=== PATIENT | female | born 1985 | race Caucasian/White ===

== ENCOUNTER 2017-05-08 20:31 | Emergency (ER) | payer BC, OTHER ==
[2017-05-08] MEDS ORDERED: Cyclobenzaprine 10 MG Tab PO ONE (21:25)
--- NOTE | 2017-05-08 21:37 | EDM.PDOC ---
ED HPI GENERAL MEDICAL PROBLEM - General Chief Complaint: ENT Problem Stated Complaint: EAR/NECK PAIN Time Seen by Provider: 05/08/17 21:06 Source of Information: Reports: Patient History Limitations: Reports: No Limitations - History of Present Illness INITIAL COMMENTS - FREE TEXT/NARRATIVE: HISTORY AND PHYSICAL: History of present illness: Patient is a 32-year-old female who presents to the emergency room with complaints of bilateral ear pain and neck/head pain. States she recently was treated with Augmentin for an ear infection. Since completing her antibiotic she still has bilateral ear pain and describes a pain to her upper neck that wraps around to her scalp like a head stand. She denies any fever, chills, change in vision. Denies any chest pain, shortness of breath, abdominal pain, nausea, vomiting or diarrhea. She has full range of motion of her neck, but does have some tension in her trapezius muscles. Review of systems: As per history of present illness and below otherwise all systems reviewed and negative. Past medical history: As per history of present illness and as reviewed below otherwise noncontributory. Surgical history: As per history of present illness and as reviewed below otherwise noncontributory. Social history: No reported history of drug or alcohol abuse. Family history: As per history of present illness and as reviewed below otherwise noncontributory. Physical exam: Gen.: Well-developed and well-nourished 32-year-old female. Alert and oriented. Nontoxic appearing and in no acute distress. HEENT: Atraumatic, normocephalic, pupils reactive, negative for conjunctival pallor or scleral icterus, mucous membranes moist, TMs normal bilaterally ( superficial scratch noted to right ear cannal - no bleeding noted), throat clear , neck supple, nontender, trachea midline. Able to tuck her chin on her chest without any difficulty or pain. No meningeal signs. No drooling or trismus. Lungs: Clear to auscultation, breath sounds equal bilaterally, chest nontender. Heart: S1S2, regular rate and rhythm without overt murmurs. Abdomen: Soft, nondistended, nontender. Negative for masses or hepatosplenomegaly. Negative for costovertebral tenderness. Pelvis: Stable nontender. Genitourinary: Deferred. Rectal: Deferred. Extremities: Atraumatic, negative for cords or calf pain. Neurovascular unremarkable. Neuro: Awake, alert, oriented. Cranial nerves II through XII unremarkable. Cerebellum unremarkable. Motor and sensory unremarkable throughout. Exam nonfocal. Patient no longer has an ear infection that is noted. The discomfort she is feeling in her neck as she describes it wrapping around the base of her skull like a tight band on second tension headache. We did discuss treatment options of this. She declines any IM injections. ORAL Flexeril. Discharged to home. She has created a follow-up appointment with ear nose throat, encouraged her to keep this appointment. Diagnostics: [] Therapeutics: Flexeril Impression: Otalgia Tension type headache Plan: 1. Please take the Flexeril tonight prior to bed. Ibuprofen with food, as directed. Gentle heat can be applied to those muscles to alleviate discomfort. 2. Follow up with ENT as you continue to have ear pain, without infection. 3. Return to the ED as needed and as discussed. Definitive disposition and diagnosis as appropriate pending reevaluation and review of above. Duration: Day(s): - Related Data Allergies Allergy/AdvReac Type Severity Reaction Status Date / Time aspirin Allergy Anaphylactic Verified 05/08/17 20:35 Shock morphine Allergy Dizziness Verified 05/08/17 20:35 Home Meds: Home Meds . 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: Musculoskeletal History: Reports: None Neurological History: Reports: None Psychiatric History: Reports: Anxiety Endocrine/Metabolic History: Reports: None Hematologic History: Reports: None Immunologic History: Reports: None Oncologic (Cancer) History: Reports: None Dermatologic History: Reports: None - Infectious Disease History Infectious Disease History: Reports: Chicken Pox - Past Surgical History Head Surgeries/Procedures: Reports: None GI Surgical History: Reports: Appendectomy Female Surgical History: Reports: Section Social & Family History - Family History Family Medical History: Noncontributory - Tobacco Use Smoking Status *Q: Light Tobacco Smoker Years of Tobacco use: 5 Packs/Tins Daily: 0.1 - Caffeine Use Caffeine Use: Reports: Coffee - Recreational Drug Use Recreational Drug Use: No ED ROS ENT - Review of Systems Review Of Systems: ROS reveals no pertinent complaints other than HPI. ED EXAM, ENT - Physical Exam Exam: See Below (See dictation) Course - Vital Signs Last Recorded V/S: Last Vital Signs Temp 98.1 F 05/08/17 20:35 Pulse 89 05/08/17 20:35 Resp 18 05/08/17 20:35 BP 132/65 05/08/17 20:35 Pulse Ox 98 05/08/17 20:35 - Orders/Labs/Meds Meds: Medications Discontinued Medications Generic Name Dose Route Start Last Admin Trade Name Freq PRN Reason Stop Dose Admin Cyclobenzaprine HCl 10 mg 05/08/17 21:25 Flexeril PO 05/08/17 21:26 ONETIME ONE Departure - Departure Time of Disposition: 21:37 Disposition: Home, Self-Care 01 Clinical Impression: Otalgia of both ears Tension type headache Qualifiers: Headache chronicity pattern: acute headache Intractability: not intractable Qualified Code(s): G44.209 - Tension-type headache, unspecified, not intractable - Discharge Information Referrals: PCP,None [Primary Care Provider] - Additional Instructions: The following information is given to patients seen in the emergency department who are being discharged to home. This information is to outline your options for follow-up care. We provide all patients seen in our emergency department with a follow-up referral. The need for follow-up, as well as the timing and circumstances, are variable depending upon the specifics of your emergency department visit. If you don't have a primary care physician on staff, we will provide you with a referral. We always advise you to contact your personal physician following an emergency department visit to inform them of the circumstance of the visit and for follow-up with them and/or the need for any referrals to a consulting specialist. The emergency department will also refer you to a specialist when appropriate. This referral assures that you have the opportunity for follow-up care with a specialist. All of these measure are taken in an effort to provide you with optimal care, which includes your follow-up. Under all circumstances we always encourage you to contact your private physician who remains a resource for coordinating your care. When calling for follow-up care, please make the office aware that this follow-up is from your recent emergency room visit. If for any reason you are refused follow-up, please contact the [facility] Emergency Department at and asked to speak to the emergency department charge nurse. SAB[facility] - ENT [address] [place] [id number] 1. Please take the Flexeril tonight prior to bed. Ibuprofen with food, as directed. Gentle heat can be applied to those muscles to alleviate discomfort. 2. Follow up with ENT as you continue to have ear pain, without infection. 3. Return to the ED as needed and as discussed.
== END 2017-05-08 21:46 | disposition home or self-care (01) ==
LOC: MW.ED 20:31
DX: G44.209 Tension-type headache, unspecified, not intractable (principal); H92.03 Otalgia, bilateral; F17.210 Nicotine dependence, cigarettes, uncomplicated; Z88.6 Allergy status to analgesic agent; Z88.5 Allergy status to narcotic agent
CPT/HCPCS: 99282; A9270; 99283

== ENCOUNTER 2018-09-01 05:40 | Inpatient (IN) | payer BC ==
[2018-09-01] MEDS ORDERED: ceFAZolin 2 GM in Premix Bag 1 BAG IV ONE (06:20)
[2018-09-01] MEDS ORDERED: Sodium Chloride 0.9% 2.5 ML Syringe FLUSH PRN (06:20)
[2018-09-01] MEDS ORDERED: Sodium Chloride 0.9% 10 ML SDV IV PRN (06:20)
[2018-09-01] MEDS ORDERED: Sodium Chloride 0.9% 10 ML Syringe FLUSH PRN (06:20)
[2018-09-01] MEDS ORDERED: Citric Acid/Sodium Citrate Solution 30 ML Cup PO ONE (06:20)
[2018-09-01] MEDS ORDERED: Lactated Ringers 1,000 ML IV SCH ×2 (06:30→09:15)
[2018-09-01] MEDS ORDERED: Oxytocin/0.9 % Sodium Chloride 30 UNIT/500 ML BAG IV SCH (06:30)
[2018-09-01] MEDS ORDERED: Phenylephrine/Normal Saline 100 MCG/ML 10 ML Syringe ONE (07:17)
[2018-09-01] MEDS ORDERED: Morphine PF 10 MG/10 ML SDV ONE (07:17)
[2018-09-01] MEDS ORDERED: ePHEDrine 50 MG/ML SDV ONE (07:17)
[2018-09-01] MEDS ORDERED: Ondansetron 4 MG/2 ML SDV ONE (07:17)
[2018-09-01] MEDS ORDERED: Sodium Chloride 0.9% 40 ML ONE (07:18)
[2018-09-01] MEDS ORDERED: ceFAZolin 1 GM Vial ONE (07:18)
[2018-09-01] MEDS ORDERED: Oxytocin/0.9 % Sodium Chloride 30 UNIT/500 ML BAG ONE (07:18)
--- NOTE | 2018-09-01 07:33 | PCM.PREANE ---
Preanesthetic Assessment - Anesthesia/Transfusion/Family Hx Anesthesia History: Prior Anesthesia Without Reaction Family History of Anesthesia Reaction: No Transfusion History: No Prior Transfusion(s) - Review of Systems General: No Symptoms Pulmonary: No Symptoms Cardiovascular: No Symptoms Gastrointestinal: No Symptoms Neurological: No Symptoms Other: Reports: None - Physical Assessment Height: 5 ft 1 in Weight: 68.039 kg ASA Class: 2 Mental Status: Alert & Oriented x3 Airway Class: Mallampati = 2 Dentition: Reports: Normal Dentition Thyro-Mental Finger Breadths: 3 Mouth Opening Finger Breadths: 3 ROM/Head Extension: Full Lungs: Clear to Auscultation, Normal Respiratory Effort Cardiovascular: Regular Rate, Regular Rhythm - Lab Values: Laboratory Last Values WBC 12.97 K/uL (4.0-11.0) H 09/01/18 06:46 RBC 4.02 M/uL (4.30-5.90) L 09/01/18 06:46 Hgb 11.7 g/dL (12.0-16.0) L 09/01/18 06:46 Hct 35.8 % (36.0-46.0) L 09/01/18 06:46 MCV 89.1 fL (80.0-98.0) 09/01/18 06:46 MCH 29.1 pg (27.0-32.0) 09/01/18 06:46 MCHC 32.7 g/dL (31.0-37.0) 09/01/18 06:46 RDW Std Deviation 45.3 fl (28.0-62.0) 09/01/18 06:46 RDW Coeff of Wong 14 % (11.0-15.0) 09/01/18 06:46 Plt Count 236 K/uL (150-400) 09/01/18 06:46 MPV 11.10 fL (7.40-12.00) 09/01/18 06:46 Nucleated RBC % 0.0 /100WBC 09/01/18 06:46 Nucleated RBCs # 0 K/uL 09/01/18 06:46 - Allergies Allergies/Adverse Reactions: Allergies Allergy/AdvReac Type Severity Reaction Status Date / Time aspirin Allergy Anaphylactic Verified 08/27/18 10:11 Shock morphine Allergy Rash Verified 08/27/18 10:10 - Acknowledgements Anesthesia Type Planned: Spinal Pt an Appropriate Candidate for the Planned Anesthesia: Yes Alternatives and Risks of Anesthesia Discussed w Pt/Guardian: Yes Pt/Guardian Understands and Agrees with Anesthesia Plan: Yes PreAnesthesia Questionnaire HEENT History: Reports: None Cardiovascular History: Reports: None Respiratory History: Reports: None Gastrointestinal History: Reports: GERD Other Gastrointestinal History: heartburn with Genitourinary History: Reports: None 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 (Approximate): Musculoskeletal History: Reports: Other (See Below) Other Musculoskeletal History: intermittent back pain with this , sciatica, scoliosis Neurological History: Reports: None Psychiatric History: Reports: Anxiety Endocrine/Metabolic History: Reports: None Hematologic History: Reports: None Immunologic History: Reports: None Oncologic (Cancer) History: Reports: None Dermatologic History: Reports: Other (See Below) Other Dermatologic History: eczema in the winter - Infectious Disease History Infectious Disease History: Reports: Chicken Pox - Past Surgical History Head Surgeries/Procedures: Reports: None HEENT Surgical History: Reports: LASIK Cardiovascular Surgical History: Reports: None Respiratory Surgical History: Reports: None GI Surgical History: Reports: Appendectomy Female Surgical History: Reports: Section (Epidural conversion) Neurological Surgical History: Reports: None Musculoskeletal Surgical History: Reports: None Dermatological Surgical History: Reports: None - SUBSTANCE USE Smoking Status *Q: Former Smoker Tobacco Use Within Last Twelve Months: Cigarettes Second Hand Smoke Exposure: No Recreational Drug Use History: No - HOME MEDS Home Medications: Home Meds Acetaminophen [Tylenol Extra Strength] 2 tab PO ASDIRECTED PRN 08/27/18 [History ] Melatonin 300 mcg PO BEDTIME 08/27/18 [History] PNV95/Ferrous Fumarate/FA [ Vitamin Tablet] 1 tab PO DAILY 08/27/18 [ History] raNITIdine HCl [Zantac] 150 mg PO DAILY 08/27/18 [History] - CURRENT (IN HOUSE) MEDS Current Meds: Current Medications Lactated Ringer's (Ringers, Lactated) 1,000 mls @ 500 mls/hr IV BOLUS PATRICE Oxytocin/Sodium Chloride (Oxytocin 30 Unit/500 Ml-Ns) 30 unit in 500 mls @ 250 mls/hr IV TITRATE PATRICE Sodium Chloride (Saline Flush) 10 ml FLUSH ASDIRECTED PRN PRN Reason: Keep Vein Open Sodium Chloride (Saline Flush) 2.5 ml FLUSH ASDIRECTED PRN PRN Reason: Keep Vein Open Sodium Chloride (Normal Saline) 10 ml IV ASDIRECTED PRN PRN Reason: IV Use Discontinued Medications Cefazolin Sodium (Ancef) Confirm Administered Dose 2 gm .ROUTE .STK-MED ONE Stop: 09/01/18 07:19 Citric Acid/Sodium Citrate (Bicitra Solution) 30 ml PO ONETIME ONE Stop: 09/01/18 06:21 Ephedrine Sulfate (Ephedrine Sulfate) Confirm Administered Dose 50 mg .ROUTE .STK-MED ONE Stop: 09/01/18 07:18 Cefazolin Sodium/Dextrose 2 gm (/ Premix) 50 mls @ 100 mls/hr IV ONETIME ONE Stop: 09/01/18 06:49 Sodium Chloride (Normal Saline) Confirm Administered Dose 40 mls @ as directed .ROUTE .STK-MED ONE Stop: 09/01/18 07:19 Oxytocin/Sodium Chloride (Oxytocin 30 Unit/500 Ml-Ns) Confirm Administered Dose 30 unit in 500 mls @ as directed .ROUTE .STK-MED ONE Stop: 09/01/18 07:19 Morphine Sulfate (Duramorph Pf) Confirm Administered Dose 10 mg .ROUTE .STK-MED ONE Stop: 09/01/18 07:18 Ondansetron HCl (Zofran) Confirm Administered Dose 4 mg .ROUTE .STK-MED ONE Stop: 09/01/18 07:18 Phenylephrine HCl (Phenylephrine In Ns 100 Mcg/Ml) Confirm Administered Dose 1 mg .ROUTE .STK-MED ONE Stop: 09/01/18 07:18
[2018-09-01] MEDS ORDERED: fentaNYL 100 MCG/2 ML SDV ONE (07:51)
[2018-09-01] MEDS ORDERED: Midazolam 1 MG/ML 2 ML SDV ONE (08:17)
[2018-09-01] MEDS ORDERED: Acetaminophen/oxyCODONE 325-5 MG Tab PO PRN (09:12)
[2018-09-01] MEDS ORDERED: diphenhydrAMINE 50 MG/ML SDV IVPUSH PRN (09:12)
[2018-09-01] MEDS ORDERED: Lanolin 100% Cream 7 GM Tube TOP PRN (09:12)
[2018-09-01] MEDS ORDERED: Aluminum Hydroxide/Magnesium Hydroxide/Simethicone Susp 30 ML Cup PO PRN (09:12)
[2018-09-01] MEDS ORDERED: Bisacodyl 10 MG Supp RECTAL PRN (09:12)
[2018-09-01] MEDS ORDERED: Ondansetron 4 MG/2 ML SDV IVPUSH PRN (09:12)
[2018-09-01] MEDS ORDERED: fentaNYL/Normal Saline 300 MCG/30 ML PCA Vial IV SCH (09:30)
--- NOTE | 2018-09-01 09:33 | PCM.POSTAN ---
POST ANESTHESIA ASSESSMENT - MENTAL STATUS Mental Status: Alert, Oriented - VITAL SIGNS Pulse Rate: 67 SaO2: 100 (RA) Resp Rate: 11 Blood Pressure: 129/67 - RESPIRATORY Respiratory Status: Respiratory Rate WNL, Airway Patent, O2 Saturation Stable - CARDIOVASCULAR CV Status: Pulse Rate WNL, Blood Pressure Stable - GASTROINTESTINAL GI Status: No Symptoms - PAIN Pain Score: 0 - POST OP HYDRATION Hydration Status: Adequate & Stable
--- NOTE | 2018-09-01 09:46 | PCM.OPNOTE ---
- General Post-Op/Procedure Note Date of Surgery/Procedure: 09/01/18 Operative Procedure(s): Repeat LTCS Findings: viable male APGARs 8, 8 weight 3210 gm. Intact placenta with 3 V cord. Copious amounts of clear amniotic fluid Pre Op Diagnosis: 38/1 week IUP. Previous c section. Severe polyhydramnios Post-Op Diagnosis: same Anesthesia Technique: Spinal Primary Surgeon: Yuliya Taylor Pathology: placenta Fluid Replacement, Intraop: 1,700 EBL in mLs: 500 Complications: None known Condition: Good Free Text/Narrative:: Intake & Output 08/31/18 09/01/18 09/01/18 22:59 06:59 14:59 Output Total 400 Balance -400 Dictation [id number]
--- NOTE | 2018-09-01 10:34 | OR ---
SURGEON: Yuliya Taylor M.D. DATE OF PROCEDURE: 09/01/2018 PREOPERATIVE DIAGNOSES: 1. 38-1/7 weeks' intrauterine . 2. Previous section. 3. Severe polyhydramnios. POSTOPERATIVE DIAGNOSES: 1. 38-1/7 weeks' intrauterine . 2. Previous section. 3. Severe polyhydramnios. PROCEDURE: Repeat low-transverse section. PRIMARY SURGEON: Yuliya Taylor MD. RECRUITMENT INTERNSHIP: [employer] Lopez. ANESTHESIA: Spinal. ESTIMATED BLOOD LOSS: 500 mL. FLUIDS: 1700 mL of crystalloid. COMPLICATIONS: None known. FINDINGS: Viable male. scores of 8 at 1 minute and 8 at 5 minutes. Weight of 3210 g. Intact placenta, 3-vessel cord. Copious amount of clear fluid. DISPOSITION: The patient to PACU, infant to nursery. PROCEDURE DETAILS: Sherri is a 33-year-old, G3, P 1-1-0-1, at 38-1/7 weeks' gestation, who presented on the morning of 09/01/2018 for scheduled repeat delivery given history of previous delivery and now with severe polyhydramnios. On initial exam, she was found to be tex every 4 to 5 minutes and her cervix had made some change to 4 cm, but still thick and head is very high, not engaged in the pelvis with bulging bag of water. After discussion with the patient, she is still opting to proceed with the repeat delivery as she had had some consideration for trial labor after . Risks of the procedure once again discussed. Proper consent obtained. The patient was taken to the operating room where she underwent spinal anesthetic, was placed in the dorsal supine position with leftward tilt. SCDs to lower extremities. Taylor to gravity. Was prepped and draped in usual sterile fashion. A time-out was performed. After being prepped and draped in usual sterile fashion, anesthesia was tested, found to be adequate. Previous Pfannenstiel scar was now excised. Subcutaneous tissue was incised down to level of the rectus fascia, which was incised in midline, lateralized on either side sharply and bluntly. Superior aspect was tented upward, dissected sharply and bluntly from underlying muscles. Similar aspect was performed in the inferior aspect of the fascia. Rectus muscle in midline. Peritoneum was entered. Rectus muscle and peritoneum were now lateralized bluntly. A self - retaining tractor gently placed. Uterovesical adhesions noted. The bladder flap was created sharply and bluntly and bladder was mobilized away from lower uterine segment. Low transverse hysterotomy was now performed. Uterine cavity was gently entered with the blunt end of the scalpel and lateralized bluntly in attempt to control the evacuation of the uterus. An 18-gauge needle was used to needle the amniotic membranes. However, even with this small rent in the amniotic bed, it simply ruptured grossly with copious fluid returned. The head was flexed and delivered with the remainder of the body without difficulty. The oropharynx and nares were bulb suctioned. Cord was clamped x2 and cut. was handed off to attending c architect. Cord arterial, cord venous, cord blood sampling obtained. Light pressure was applied while the placenta was now delivered. Uterine cavity was cleared of all clot and debris. Uterus was involuting nicely. The hysterotomy was repaired using 0 Vicryl in continuous running locked fashion followed by a re-imbricating layer. Area of oozing in the midline was plicated with [id number] suture. Uterus has remained firm. Posterior aspect of uterus inspected. No defects or hematomas found be forming. Region was well irrigated, suction dried. A re-imbricating layer of 0 Vicryl was utilized to replicate the hysterotomy incision. Self-retaining tractor now gently removed. Bladder blade and Rich were now placed. Any areas of oozing were cauterized. Hemostasis appeared evident. The bladder blade was now removed. The muscle and peritoneum were now reapproximated using 0 Vicryl with inverted mattress suture technique. Anterior aspect of muscle and posterior aspect of fascia closely inspected, any areas of oozing were cauterized. The rectus fascia was reapproximated using 0 Vicryl in continuous running fashion beginning laterally on each side and meeting in the midline. Subcutaneous tissue was well irrigated, suction dried. Any areas of oozing were cauterized. The skin edges were reapproximated using 3-0 Vicryl on a Lj needle in subcuticular fashion followed by half-inch Steri-Strips and Mastisol re-imbrication. Uterus remained firm, hemostasis appeared evident. The patient tolerated the procedure well. She will go to PACU in stable condition. Sponge, instrument, and needle counts correct x2. The placenta will go to pathology, infant to nursery. AHMET / ABRAHAM /[id number] MTDD
[2018-09-01] MEDS: fentaNYL 100 MCG/2 ML SDV IVPUSH PRN ×2 (11:57→12:48)
[2018-09-01] MEDS: Simethicone 80 MG Tab.Chew PO SCH ×3 (11:59→23:55)
[2018-09-01] MEDS ORDERED: fentaNYL 1,000 MCG in Sodium Chloride 0.9% 80 ML IV PRN (13:04)
[2018-09-01] MEDS ORDERED: Acetaminophen/oxyCODONE 325-5 MG Tab PO ONE (16:44)
--- NOTE | 2018-09-01 17:27 | PCM.SN ---
- Free Text/Narrative Note: Fentanyl PIPING BLOCKER was setup by me as it was mixed by our pharmacy and not compatible with our PIPING BLOCKER pumps. Pt settings 15mcg Q7mins with Q4HR LO 250mcg. Patient has continued to be increasingly uncomfortable throughout the afternoon. Percocet 5 /325 x1 PO ordered by me. Pizarro is being d/c'd at this time. I informed the patient if better relief is obtained from the percocet and pizarro removal the PIPING BLOCKER would be d/c'd and she would probably benefit better from PO management. Patient expresses understanding, Dr Taylor updated by Mayte MARQUEZ.
[2018-09-01] MEDS: Docusate Sodium 100 MG Cap PO SCH (20:52)
[2018-09-01] MEDS: Acetaminophen/oxyCODONE 325-5 MG Tab PO PRN (22:22)
[2018-09-02] MEDS: Acetaminophen/oxyCODONE 325-5 MG Tab PO PRN ×6 (02:24→22:53)
[2018-09-02] MEDS: Simethicone 80 MG Tab.Chew PO SCH ×4 (06:27→23:30)
--- NOTE | 2018-09-02 06:44 | PCM48HPAN ---
Post Anesthesia Note - EVALUATION WITHIN 48HRS OF ANESTHETIC Vital Signs in Normal Range: Yes Patient Participated in Evaluation: Yes Respiratory Function Stable: Yes Airway Patent: Yes Cardiovascular Function Stable: Yes Hydration Status Stable: Yes Pain Control Satisfactory: Yes Nausea and Vomiting Control Satisfactory: Yes Pulse Rate: 96 SaO2: 100 Resp Rate: 15 Blood Pressure: 118/74 - COMMENTS/OBSERVATIONS Free Text/Narrative:: Fentanyl SKATING RINK MANAGER D/C'd due to poor pain control. Percocet PO has been better. Pt was able to sleep throughout the night.
--- NOTE | 2018-09-02 08:47 | PCM.PNPP ---
- General Info Date of Service: 09/02/18 Functional Status: Reports: Pain Controlled, Tolerating Diet, Ambulating, Urinating - Review of Systems General: Denies: Fever, Weakness Pulmonary: Denies: Shortness of Breath Cardiovascular: Denies: Chest Pain, Palpitations, Lightheadedness Gastrointestinal: Reports: Abdominal Pain (incisional controlled with oral pain meds). Denies: Nausea, Vomiting Musculoskeletal: Reports: No Symptoms Skin: Reports: No Symptoms Neurological: Reports: No Symptoms Psychiatric: Reports: No Symptoms - General Info Date of Service: 09/02/18 - Patient Data Vital Signs - Most Recent: Last Vital Signs Temp 36.3 C 09/02/18 04:17 Pulse 96 09/02/18 06:44 Resp 15 09/02/18 06:44 BP 118/74 09/02/18 06:44 Pulse Ox 100 09/02/18 06:44 Weight - Most Recent: 68.039 kg I&O - Last 24 Hours: Intake & Output 09/01/18 09/02/18 09/02/18 22:59 06:59 14:59 Output Total 1100 Balance -1100 Lab Results - Last 24 Hours: Laboratory Results - last 24 hr 09/01/18 09/02/18 Range/Units 08:30 05:55 Hgb 10.4 L (12.0-16.0) g/dL Hct 32.0 L (36.0-46.0) % Cord ABG pH 7.284 (7.18-7.38) Cord ABG Base Excess -5 (-10--2) Cord VBG pH 7.268 (7.25-7.45) Cord VBG Base Excess -6 (-10--2) Med Orders - Current: Current Medications Al Hydroxide/Mg Hydroxide (Mag-Al Plus) 30 ml PO Q8H PRN PRN Reason: Heartburn Bisacodyl (Dulcolax) 10 mg RECTAL ONETIME PRN PRN Reason: Constipation Diphenhydramine HCl (Benadryl) 25 mg IVPUSH Q6H PRN PRN Reason: Itching or Nausea Docusate Sodium (Colace) 100 mg PO BID [facility] Last Admin: 09/01/18 20:52 Dose: 100 mg Emollient Ointment (Lansinoh Hpa) 0 gm TOP ASDIRECTED PRN PRN Reason: Sore Nipples Fentanyl (Sublimaze) 50 mcg IVPUSH Q30M PRN PRN Reason: Pain Last Admin: 09/01/18 12:48 Dose: 50 mcg Lactated Ringer's (Ringers, Lactated) 1,000 mls @ 500 mls/hr IV BOLUS [facility] Last Admin: 09/01/18 07:30 Dose: 500 mls/hr Oxytocin/Sodium Chloride (Oxytocin 30 Unit/500 Ml-Ns) 30 unit in 500 mls @ 250 mls/hr IV TITRATE [facility] Lactated Ringer's (Ringers, Lactated) 1,000 mls @ 125 mls/hr IV ASDIRECTED [facility] Last Admin: 09/01/18 11:31 Dose: 125 mls/hr Ondansetron HCl (Zofran) 4 mg IVPUSH Q4H PRN PRN Reason: Nausea/Vomiting Oxycodone/Acetaminophen (Percocet 325-5 Mg) 1 tab PO Q4H PRN PRN Reason: Pain (moderate 4-6) Last Admin: 09/01/18 18:48 Dose: 1 tab Oxycodone/Acetaminophen (Percocet 325-5 Mg) 2 tab PO Q4H PRN PRN Reason: Pain (moderate 4-6) Last Admin: 09/02/18 06:26 Dose: 2 tab Simethicone (Simethicone) 160 mg PO QID [facility] Last Admin: 09/02/18 06:27 Dose: 160 mg Sodium Chloride (Saline Flush) 10 ml FLUSH ASDIRECTED PRN PRN Reason: Keep Vein Open Sodium Chloride (Saline Flush) 2.5 ml FLUSH ASDIRECTED PRN PRN Reason: Keep Vein Open Sodium Chloride (Normal Saline) 10 ml IV ASDIRECTED PRN PRN Reason: IV Use Discontinued Medications Cefazolin Sodium (Ancef) Confirm Administered Dose 2 gm .ROUTE .STK-MED ONE Stop: 09/01/18 07:19 Citric Acid/Sodium Citrate (Bicitra Solution) 30 ml PO ONETIME ONE Stop: 09/01/18 06:21 Last Admin: 09/01/18 07:57 Dose: 30 ml Ephedrine Sulfate (Ephedrine Sulfate) Confirm Administered Dose 50 mg .ROUTE .STK-MED ONE Stop: 09/01/18 07:18 Fentanyl (Sublimaze) Confirm Administered Dose 100 mcg .ROUTE .STK-MED ONE Stop: 09/01/18 07:52 Cefazolin Sodium/Dextrose 2 gm (/ Premix) 50 mls @ 100 mls/hr IV ONETIME ONE Stop: 09/01/18 06:49 Sodium Chloride (Normal Saline) Confirm Administered Dose 40 mls @ as directed .ROUTE .STK-MED ONE Stop: 09/01/18 07:19 Oxytocin/Sodium Chloride (Oxytocin 30 Unit/500 Ml-Ns) Confirm Administered Dose 30 unit in 500 mls @ as directed .ROUTE .STK-MED ONE Stop: 09/01/18 07:19 Fentanyl 1,000 mcg/ Sodium (Chloride) 100 mls @ 9 mls/hr IV ASDIRECTED PRN PRN Reason: pain Last Admin: 09/01/18 13:42 Dose: 9 mls/hr Midazolam HCl (Versed 1 Mg/Ml) Confirm Administered Dose 2 mg .ROUTE .STK-MED ONE Stop: 09/01/18 08:18 Morphine Sulfate (Duramorph Pf) Confirm Administered Dose 10 mg .ROUTE .STK-MED ONE Stop: 09/01/18 07:18 Ondansetron HCl (Zofran) Confirm Administered Dose 4 mg .ROUTE .STK-MED ONE Stop: 09/01/18 07:18 Oxycodone/Acetaminophen (Percocet 325-5 Mg) 1 tab PO ONETIME ONE Stop: 09/01/18 16:45 Last Admin: 09/01/18 16:55 Dose: 1 tab Phenylephrine HCl (Phenylephrine In Ns 100 Mcg/Ml) Confirm Administered Dose 1 mg .ROUTE .STK-MED ONE Stop: 09/01/18 07:18 - Interaction Support Person: - Recovery Exam Fundal Tone: Firm Fundal Level: At Umbilicus Fundal Placement: Midline Lochia Amount: Scant Lochia Color: Rubra/Red Perineum Description: Intact, Minimal Bruising/Swelling Episiotomy/Laceration: None Bladder Status: Nonpalpable, Voiding Urinary Elimination: Voided - Exam General: Alert, Oriented Lungs: Normal Respiratory Effort Cardiovascular: Regular Rate, Regular Rhythm GI/Abdominal Exam: Normal Bowel Sounds, Soft Extremities: Pedal Edema (trace). No: Sunita's Sign Skin: Warm, Dry, Intact Wound/Incisions: Healing Well Neurological: No New Focal Deficit Psy/Mental Status: Alert, Normal Affect, Normal Mood - Problem List & Annotations (1) section SNOMED Code(s): 38756410 - section Status: Acute Current Visit: No - Problem List Review Problem List Initiated/Reviewed/Updated: Yes - My Orders Last 24 Hours: My Active Orders 09/01/18 09:12 Notify Provider Intake and Out [RC] ASDIRECTED Notify Provider Vital Signs [RC] ASDIRECTED Acetaminophen/oxyCODONE [Percocet 325-5 MG] 1 tab PO Q4H PRN Acetaminophen/oxyCODONE [Percocet 325-5 MG] 2 tab PO Q4H PRN Alum Hydrox/Mag Hydrox/Simeth [Mag-Al Plus] 30 ml PO Q8H PRN Bisacodyl [Dulcolax] 10 mg RECTAL ONETIME PRN Lanolin [Lansinoh HPA] See Dose Instructions TOP ASDIRECTED PRN Ondansetron [Zofran] 4 mg IVPUSH Q4H PRN diphenhydrAMINE [Benadryl] 25 mg IVPUSH Q6H PRN Abdominal Binder [OM.PC] Routine Heat Therapy [OM.PC] Routine Ice Therapy [OM.PC] Routine 09/01/18 09:15 Patient Status [ADT] Routine Ambulate [RC] PER UNIT ROUTINE Antiembolic Devices [RC] PER UNIT ROUTINE Communication Order [RC] PER UNIT ROUTINE Communication Order [RC] PER UNIT ROUTINE Communication Order [RC] Per Unit Routine May Shower [RC] ASDIRECTED RT Incentive Spirometry [RC] Q2HWA Vital Signs [RC] PER UNIT ROUTINE Lactated Ringers [Ringers, Lactated] 1,000 ml IV ASDIRECTED Assess Lochia [WOMSER] Per Unit Routine Assess Uterine Involution [WOMSER] Per Unit Routine Breast Pump [WOMSER] Per Unit Routine Peripheral IV Discontinue [OM.PC] Routine Sequential Compression Device [OM.PC] Per Unit Routine 09/01/18 12:00 Simethicone 160 mg PO QID 09/01/18 21:00 Docusate Sodium [Colace] 100 mg PO BID 09/01/18 Lunch Regular Diet [DIET] - Assessment Assessment:: POD 1 status post Repeat c section - Plan Plan:: Continue postoperative cares, ambulate halls. Work with . Infant is being weaned from oxygen.
[2018-09-02] MEDS: buPROPion 150 MG Tab.ER PO SCH ×2 (10:30→13:18)
[2018-09-02] MEDS: Docusate Sodium 100 MG Cap PO SCH ×2 (10:31→21:07)
[2018-09-03] MEDS: Simethicone 80 MG Tab.Chew PO SCH ×3 (01:13→11:54)
[2018-09-03] MEDS: Acetaminophen/oxyCODONE 325-5 MG Tab PO PRN ×3 (02:53→11:54)
[2018-09-03] MEDS: Docusate Sodium 100 MG Cap PO SCH (08:08)
[2018-09-03] MEDS: buPROPion 150 MG Tab.ER PO SCH (08:22)
--- NOTE | 2018-09-03 09:05 | PCM.PNPP ---
- General Info Date of Service: 09/03/18 Functional Status: Reports: Pain Controlled, Tolerating Diet, Ambulating, Urinating - Review of Systems General: Reports: No Symptoms HEENT: Reports: No Symptoms Pulmonary: Reports: No Symptoms Cardiovascular: Reports: No Symptoms Gastrointestinal: Reports: No Symptoms Genitourinary: Reports: No Symptoms Musculoskeletal: Reports: No Symptoms Skin: Reports: No Symptoms Neurological: Reports: No Symptoms Psychiatric: Reports: No Symptoms - Patient Data Vital Signs - Most Recent: Last Vital Signs Temp 36.8 C 09/03/18 08:00 Pulse 93 09/03/18 08:00 Resp 16 09/03/18 08:00 BP 133/68 09/03/18 08:00 Pulse Ox 98 09/03/18 08:00 Weight - Most Recent: 68.039 kg Med Orders - Current: Current Medications Al Hydroxide/Mg Hydroxide (Mag-Al Plus) 30 ml PO Q8H PRN PRN Reason: Heartburn Bisacodyl (Dulcolax) 10 mg RECTAL ONETIME PRN PRN Reason: Constipation Bupropion HCl (Wellbutrin Xl) 150 mg PO DAILY [facility] Last Admin: 09/03/18 08:22 Dose: Not Given Diphenhydramine HCl (Benadryl) 25 mg IVPUSH Q6H PRN PRN Reason: Itching or Nausea Docusate Sodium (Colace) 100 mg PO BID [facility] Last Admin: 09/03/18 08:08 Dose: 100 mg Emollient Ointment (Lansinoh Hpa) 0 gm TOP ASDIRECTED PRN PRN Reason: Sore Nipples Fentanyl (Sublimaze) 50 mcg IVPUSH Q30M PRN PRN Reason: Pain Last Admin: 09/01/18 12:48 Dose: 50 mcg Lactated Ringer's (Ringers, Lactated) 1,000 mls @ 500 mls/hr IV BOLUS [facility] Last Admin: 09/01/18 07:30 Dose: 500 mls/hr Oxytocin/Sodium Chloride (Oxytocin 30 Unit/500 Ml-Ns) 30 unit in 500 mls @ 250 mls/hr IV TITRATE [facility] Lactated Ringer's (Ringers, Lactated) 1,000 mls @ 125 mls/hr IV ASDIRECTED [facility] Last Admin: 09/01/18 11:31 Dose: 125 mls/hr Ondansetron HCl (Zofran) 4 mg IVPUSH Q4H PRN PRN Reason: Nausea/Vomiting Oxycodone/Acetaminophen (Percocet 325-5 Mg) 1 tab PO Q4H PRN PRN Reason: Pain (moderate 4-6) Last Admin: 09/01/18 18:48 Dose: 1 tab Oxycodone/Acetaminophen (Percocet 325-5 Mg) 2 tab PO Q4H PRN PRN Reason: Pain (moderate 4-6) Last Admin: 09/03/18 07:42 Dose: 2 tab Simethicone (Simethicone) 160 mg PO QID [facility] Last Admin: 09/03/18 07:09 Dose: Not Given Sodium Chloride (Saline Flush) 10 ml FLUSH ASDIRECTED PRN PRN Reason: Keep Vein Open Sodium Chloride (Saline Flush) 2.5 ml FLUSH ASDIRECTED PRN PRN Reason: Keep Vein Open Sodium Chloride (Normal Saline) 10 ml IV ASDIRECTED PRN PRN Reason: IV Use Discontinued Medications Cefazolin Sodium (Ancef) Confirm Administered Dose 2 gm .ROUTE .STK-MED ONE Stop: 09/01/18 07:19 Citric Acid/Sodium Citrate (Bicitra Solution) 30 ml PO ONETIME ONE Stop: 09/01/18 06:21 Last Admin: 09/01/18 07:57 Dose: 30 ml Ephedrine Sulfate (Ephedrine Sulfate) Confirm Administered Dose 50 mg .ROUTE .STK-MED ONE Stop: 09/01/18 07:18 Fentanyl (Sublimaze) Confirm Administered Dose 100 mcg .ROUTE .STK-MED ONE Stop: 09/01/18 07:52 Cefazolin Sodium/Dextrose 2 gm (/ Premix) 50 mls @ 100 mls/hr IV ONETIME ONE Stop: 09/01/18 06:49 Sodium Chloride (Normal Saline) Confirm Administered Dose 40 mls @ as directed .ROUTE .STK-MED ONE Stop: 09/01/18 07:19 Oxytocin/Sodium Chloride (Oxytocin 30 Unit/500 Ml-Ns) Confirm Administered Dose 30 unit in 500 mls @ as directed .ROUTE .STK-MED ONE Stop: 09/01/18 07:19 Fentanyl 1,000 mcg/ Sodium (Chloride) 100 mls @ 9 mls/hr IV ASDIRECTED PRN PRN Reason: pain Last Admin: 09/01/18 13:42 Dose: 9 mls/hr Midazolam HCl (Versed 1 Mg/Ml) Confirm Administered Dose 2 mg .ROUTE .STK-MED ONE Stop: 09/01/18 08:18 Morphine Sulfate (Duramorph Pf) Confirm Administered Dose 10 mg .ROUTE .STK-MED ONE Stop: 09/01/18 07:18 Ondansetron HCl (Zofran) Confirm Administered Dose 4 mg .ROUTE .STK-MED ONE Stop: 09/01/18 07:18 Oxycodone/Acetaminophen (Percocet 325-5 Mg) 1 tab PO ONETIME ONE Stop: 09/01/18 16:45 Last Admin: 09/01/18 16:55 Dose: 1 tab Phenylephrine HCl (Phenylephrine In Ns 100 Mcg/Ml) Confirm Administered Dose 1 mg .ROUTE .STK-MED ONE Stop: 09/01/18 07:18 - Infant Interaction Support Person: - Recovery Exam Fundal Tone: Firm Fundal Level: 1 Fingerbreadths Below Umbilicus Fundal Placement: Midline Lochia Amount: Scant Lochia Color: Rubra/Red Perineum Description: Intact, Minimal Bruising/Swelling Episiotomy/Laceration: None Bladder Status: Nonpalpable, Voiding Urinary Elimination: Voided - Exam General: Alert, Oriented HEENT: Pupils Equal Neck: Supple Lungs: Normal Respiratory Effort GI/Abdominal Exam: Soft, Non-Tender. No: No Distention (mild) Extremities: Normal Inspection, Non-Tender, No Pedal Edema Skin: Warm, Dry, Intact Wound/Incisions: Healing Well Neurological: No New Focal Deficit Psy/Mental Status: Alert, Normal Affect, Normal Mood - Problem List Review Problem List Initiated/Reviewed/Updated: Yes - Assessment Assessment:: POD 2 status post Repeat c section - Plan Plan:: Dismiss to home today, discharge instructions reviewed.
== END 2018-09-03 12:20 | disposition home or self-care (01) | DRG 540 ==
LOC: MW.OB 05:40
PROVIDERS: ADMIT Obstetrics & Gynecology; ATTEND Obstetrics & Gynecology
PROC: 10D00Z1 Extraction of Products of Conception, Low, Open Approach (ICD-10-PCS; principal; 2018-09-01)
PROC: 6A550ZT Pheresis of Cord Blood Stem Cells, Single (ICD-10-PCS; principal; 2018-09-01)
DX: O34.211 Maternal care for low transverse scar from previous cesarean delivery (principal); N85.8 Other specified noninflammatory disorders of uterus; Z37.0 Single live birth; Z3A.38 38 weeks gestation of pregnancy; O40.3XX0 Polyhydramnios, third trimester, not applicable or unspecified; O99.62 Diseases of the digestive system complicating childbirth; K21.9 Gastro-esophageal reflux disease without esophagitis; O99.344 Other mental disorders complicating childbirth; F41.9 Anxiety disorder, unspecified; O75.89 Other specified complications of labor and delivery; M41.9 Scoliosis, unspecified; Z87.891 Personal history of nicotine dependence; Z88.5 Allergy status to narcotic agent; Z88.8 Allergy status to other drugs, medicaments and biological substances
CPT/HCPCS: 01961; 36415; 59025; 82803; 85014; 85018; 85027; 86850; 86900; 86901; 88307; A9270-GY; J0690; J2250; J2270; J2370; J2405; J2590; J3010; J7030; J7120

== ENCOUNTER 2019-06-28 13:18 | Emergency (ER) | payer BC, OTHER ==
--- NOTE | 2019-06-28 13:32 | EDM.PDOC ---
ED HPI GENERAL MEDICAL PROBLEM - General Chief Complaint: General Stated Complaint: SOB Time Seen by Provider: 06/28/19 13:31 Source of Information: Reports: Patient History Limitations: Reports: No Limitations - History of Present Illness INITIAL COMMENTS - FREE TEXT/NARRATIVE: HISTORY AND PHYSICAL: History of present illness: Patient is a 34-year-old female presents to the ED with complaint of shortness of breath. Patient states yesterday she felt like she couldn't take a deep breath and when she did would have a burning pain in her chest. She states she would get short of breath going up and down the stairs. She has a history of anxiety and thought it was due to this and states she took a shower to "calm herself down." She states she had also taken some sudafed earlier in the day and thought maybe she was having an allergic reaction to this. She states this morning she feels better but still occasionally feels like she can't get a deep breath. She denies cough, fevers, chills, nausea, vomiting, abdominal pain, diarrhea. Review of systems: As per history of present illness and below otherwise all systems reviewed and negative. Past medical history: As per history of present illness and as reviewed below otherwise noncontributory. Surgical history: As per history of present illness and as reviewed below otherwise noncontributory. Social history: No reported history of drug or alcohol abuse. Family history: As per history of present illness and as reviewed below otherwise noncontributory. Physical exam: General: Patient sitting comfortably in no acute distress and nontoxic appearing HEENT: Atraumatic, normocephalic, pupils reactive, negative for conjunctival pallor or scleral icterus, mucous membranes moist, throat clear, neck supple, nontender, trachea midline. No meningeal signs. Lungs: Clear to auscultation, breath sounds equal bilaterally, chest nontender. Heart: S1S2, regular, negative for clicks, rubs, or overt murmur. Abdomen: Soft, nondistended, nontender. Negative for masses or hepatosplenomegaly. Negative for costovertebral tenderness. No rigidity, rebound , guarding. Pelvis: Stable nontender. Genitourinary: Deferred. Rectal: Deferred. Extremities: Atraumatic, negative for cords or calf pain. Neurovascular unremarkable. Neuro: Awake, alert, oriented. Cranial nerves II through XII unremarkable. Cerebellum unremarkable. Motor and sensory unremarkable throughout. Exam nonfocal. Notes: Diagnostics: CBC, CMP, Troponin, EKG, CXR Therapeutics: none Prescriptions: Impression: Shortness of breath Plan: Follow up with primary care provider Return to ED as needed as discussed Definitive disposition and diagnosis as appropriate pending reevaluation and review of above. - Related Data Allergies Allergy/AdvReac Type Severity Reaction Status Date / Time aspirin Allergy Anaphylactic Verified 06/28/19 13:29 Shock morphine Allergy Rash Verified 06/28/19 13:29 Home Meds: Home Meds buPROPion [Wellbutrin] 06/28/19 [History] Past Medical History HEENT History: Reports: None Cardiovascular History: Reports: None Respiratory History: Reports: None Gastrointestinal History: Reports: GERD Other Gastrointestinal History: heartburn with Genitourinary History: Reports: None [employer] History: Reports: Musculoskeletal History: Reports: Other (See Below) Other Musculoskeletal History: intermittent back pain with this , sciatica, scoliosis Neurological History: Reports: None Psychiatric History: Reports: Anxiety Endocrine/Metabolic History: Reports: None Hematologic History: Reports: None Immunologic History: Reports: None Oncologic (Cancer) History: Reports: None Dermatologic History: Reports: Other (See Below) Other Dermatologic History: eczema in the winter - Infectious Disease History Infectious Disease History: Reports: Chicken Pox - Past Surgical History Head Surgeries/Procedures: Reports: None HEENT Surgical History: Reports: LASIK Cardiovascular Surgical History: Reports: None Respiratory Surgical History: Reports: None GI Surgical History: Reports: Appendectomy Female Surgical History: Reports: Section (Epidural conversion) Neurological Surgical History: Reports: None Musculoskeletal Surgical History: Reports: None Dermatological Surgical History: Reports: None Social & Family History - Family History Family Medical History: Noncontributory - Caffeine Use Caffeine Use: Reports: Soda ED ROS GENERAL - Review of Systems Review Of Systems: Comprehensive ROS is negative, except as noted in HPI. ED EXAM, GENERAL - Physical Exam Exam: See Below (see dictation) Course - Vital Signs Last Recorded V/S: Last Vital Signs Temp 97.5 F 06/28/19 13:30 Pulse 90 06/28/19 13:30 Resp 18 06/28/19 13:30 BP 148/95 H 06/28/19 13:30 Pulse Ox 100 06/28/19 13:30 - Orders/Labs/Meds Labs: Laboratory Tests 06/28/19 06/28/19 Range/Units 14:01 14:01 WBC 8.11 (4.0-11.0) K/uL RBC 5.25 (4.30-5.90) M/uL Hgb 15.0 (12.0-16.0) g/dL Hct 45.8 (36.0-46.0) % MCV 87.2 (80.0-98.0) fL MCH 28.6 (27.0-32.0) pg MCHC 32.8 (31.0-37.0) g/dL RDW Std Deviation 39.3 (28.0-62.0) fl RDW Coeff of Wong 12 (11.0-15.0) % Plt Count 330 (150-400) K/uL MPV 10.50 (7.40-12.00) fL Neut % (Auto) 68.7 (48.0-80.0) % Lymph % (Auto) 24.2 (16.0-40.0) % [place] % (Auto) 6.4 (0.0-15.0) % Eos % (Auto) 0.6 (0.0-7.0) % Baso % (Auto) 0.1 (0.0-1.5) % Neut # (Auto) 5.6 (1.4-5.7) K/uL Lymph # (Auto) 2.0 (0.6-2.4) K/uL [place] # (Auto) 0.5 (0.0-0.8) K/uL Eos # (Auto) 0.1 (0.0-0.7) K/uL Baso # (Auto) 0.0 (0.0-0.1) K/uL Nucleated RBC % 0.0 /100WBC Nucleated RBCs # 0 K/uL Sodium 141 (136-145) mmol/L Potassium 3.7 (3.5-5.1) mmol/L Chloride 104 (98-107) mmol/L Carbon Dioxide 28.1 (21.0-32.0) mmol/L BUN 11 (7.0-18.0) mg/dL Creatinine 0.8 (0.6-1.0) mg/dL Est Cr Clr Drug Dosing 76.89 mL/min Estimated GFR (MDRD) > 60.0 ml/min Glucose 110 H (74-106) mg/dL Calcium 8.8 (8.5-10.1) mg/dL Total Bilirubin 0.3 (0.2-1.0) mg/dL AST 15 (15-37) IU/L ALT 23 (14-63) IU/L Alkaline Phosphatase 73 (46-116) U/L Troponin I < 0.050 (0.000-0.056) ng/mL Total Protein 7.3 (6.4-8.2) g/dL Albumin 4.1 (3.4-5.0) g/dL Globulin 3.2 (2.6-4.0) g/dL Albumin/Globulin Ratio 1.3 (0.9-1.6) Meds: Medications Discontinued Medications Generic Name Dose Route Start Last Admin Trade Name Freq PRN Reason Stop Dose Admin Sodium Chloride 1,000 mls @ 999 mls/hr 06/28/19 13:33 06/28/19 14:53 Normal Saline IV 06/28/19 14:33 Not Given BOLUS ONE Sodium Chloride 2.5 ml 06/28/19 13:33 Saline Flush FLUSH ASDIRECTED PRN Keep Vein Open Sodium Chloride 10 ml 06/28/19 13:33 Saline Flush FLUSH ASDIRECTED PRN Keep Vein Open Sodium Chloride 2.5 ml 06/28/19 13:33 Saline Flush FLUSH ASDIRECTED PRN Keep Vein Open Departure - Departure Time of Disposition: 15:00 Disposition: Home, Self-Care 01 Condition: Good Clinical Impression: Shortness of breath - Discharge Information Referrals: Manuel Miles MD [Primary Care Provider] - Forms: ED Department Discharge Additional Instructions: The following information is given to patients seen in the emergency department who are being discharged to home. This information is to outline your options for follow-up care. We provide all patients seen in our emergency department with a follow-up referral. The need for follow-up, as well as the timing and circumstances, are variable depending upon the specifics of your emergency department visit. If you don't have a primary care physician on staff, we will provide you with a referral. We always advise you to contact your personal physician following an emergency department visit to inform them of the circumstance of the visit and for follow-up with them and/or the need for any referrals to a consulting specialist. The emergency department will also refer you to a specialist when appropriate. This referral assures that you have the opportunity for follow-up care with a specialist. All of these measure are taken in an effort to provide you with optimal care, which includes your follow-up. Under all circumstances we always encourage you to contact your private physician who remains a resource for coordinating your care. When calling for follow-up care, please make the office aware that this follow-up is from your recent emergency room visit. If for any reason you are refused follow-up, please contact the [facility] Emergency Department at and asked to speak to the emergency department charge nurse. [facility] [address] [place] [address] [id number] [address] [address] Follow up with primary care provider Return to ED as needed as discussed Sepsis Event Note - Focused Exam Vital Signs: Vital Signs Temp Pulse Resp BP Pulse Ox 06/28/19 13:30 97.5 F 90 18 148/95 H 100 Date Exam was Performed: 06/28/19 Time Exam was Performed: 15:01
[2019-06-28] MEDS ORDERED: Sodium Chloride 0.9% 10 ML Syringe FLUSH PRN (13:33)
[2019-06-28] MEDS ORDERED: Sodium Chloride 0.9% 2.5 ML Syringe FLUSH PRN ×2 (13:33)
[2019-06-28] MEDS ORDERED: Sodium Chloride 0.9% 1,000 ML IV ONE (13:33)
--- NOTE | 2019-06-28 14:20 | CR ---
INDICATION: Shortness of breath TECHNIQUE: Single view chest. FINDINGS: The lungs are clear. The heart, mediastinum and pulmonary vessels are of normal size. There is no evidence of pleural disease. IMPRESSION: Negative chest. Dictated by Rosa Rothman MD @ Jun 28 2019 2:18PM Signed by Dr. Rosa Rothman @ Jun 28 2019 2:18PM
[2019-06-28 14:46] LABS: BLOOD UREA NITROGEN,BUN 11 mg/dL (7.0-18.0); CARBON DIOXIDE,CO2 28.1 mmol/L (21.0-32.0); CHLORIDE,CL 104 mmol/L (98-107); GLUCOSE RANDOM 110 mg/dL (74-106); POTASSIUM,K 3.7 mmol/L (3.5-5.1); SODIUM,NA 141 mmol/L (136-145)
== END 2019-06-28 15:18 | disposition home or self-care (01) ==
LOC: MW.ED 13:18
DX: R06.02 Shortness of breath (principal); F41.9 Anxiety disorder, unspecified; Z79.899 Other long term (current) drug therapy
CPT/HCPCS: 36415; 71045; 71045-26; 80053; 84484; 85025; 93005; 99283; 99285-25

== ENCOUNTER 2020-01-29 17:54 | Emergency (ER) | payer BC, OTHER ==
--- NOTE | 2020-01-29 20:05 | EDM.PDOC ---
ED HPI GENERAL MEDICAL PROBLEM - General Chief Complaint: ENT Problem Stated Complaint: LUMP IN THE BACK OF THROAT Time Seen by Provider: 01/29/20 19:14 Source of Information: Reports: Patient History Limitations: Reports: No Limitations - History of Present Illness INITIAL COMMENTS - FREE TEXT/NARRATIVE: HISTORY AND PHYSICAL: History of present illness: Patient is a 34-year-old female who presents to the ED today with concern of an odd growth/tissue formation in the back of her throat. Patient states that she went to swallow some water and felt a slight presence of something being up the back of her throat so looked in the mirror. Patient states she saw a little bump in the back of her throat states that this bump is not painful to touch. Patient states she is not having any sore throat, difficulty swallowing, or difficulties breathing. Patient denies any other symptoms or concerns. Patient denies fever, chills, chest pain, shortness of breath, or cough. Denies headache, neck stiff ness, change in vision, syncope, or near syncope. Denies nausea, vomiting, abdominal pain, diarrhea, constipation, or dysuria. Has not noted any blood in urine or stool. Patient has been eating and drinking appropriately. Review of systems: As per history of present illness and below otherwise all systems reviewed and negative. Past medical history: As per history of present illness and as reviewed below otherwise noncontributory. Surgical history: As per history of present illness and as reviewed below otherwise noncontributory. Social history: See social history for further information Family history: As per history of present illness and as reviewed below otherwise noncontributory. Physical exam: General: Patient is alert, oriented, and in no acute distress. Patient sitting comfortably on exam table. Tachycardic 120s on exam but vitals otherwise stable and reviewed by me along with nursing documentation. HEENT: There is a 2mm mucous cyst on the right posterior oropharynx just superior to the tonsillar tissue of the right. Atraumatic, normocephalic, pupils equal and reactive bilaterally, negative for conjunctival pallor or scleral icterus, mucous membranes moist, TMs normal bilaterally, throat clear, neck supple, nontender, trachea midline. No drooling or trismus noted. No meningeal signs. No hot potato voice noted. Lungs: Clear to auscultation, breath sounds equal bilaterally, chest nontender. Heart: Tachycardic. S1S2, tachycardic but regular rate and rhythm without overt murmur Abdomen: Soft, nondistended, nontender. Negative for masses or hepatosplenomegaly. Negative for costovertebral tenderness. Pelvis: Stable nontender. Genitourinary: Deferred. Rectal: Deferred. Skin: Intact, warm, dry. No lesions or rashes noted. Extremities: Atraumatic, negative for cords or calf pain. Neurovascular unremarkable. Neuro: Awake, alert, oriented. Cranial nerves II through XII unremarkable. Cerebellum unremarkable. Motor and sensory unremarkable throughout. Exam nonfocal. Notes: Patient is tachycardic on exam of 120s but is well appearing and in no acute distress. Patient states she has had issues with tachycardia for 6 months-1 year and has been following with her PCP and has had EKG, thyroid function testing, ECHO with cardiology referral, and multiple other work up for her tachycardia. She states she chooses not to take Metoprolol as it "makes her feel funny". Patient was offered evaluation of tachycardia today but she declines all diagnostics at this time. Signs and symptoms that would prompt return to the ED thoroughly discussed with patient. Discussed the importance for close and prompt follow-up with her primary care provider in regards to her tachycardia. Voices understanding and is agreeable to plan of care. Denies any further questions or concerns at this time. Diagnostics: Evaluation of patients tachycardia offered but she declines at this time. All risks vs benefits discussed with patient and expresses understanding. Therapeutics: None Prescription: None Impression: Mucous cyst, right oropharynx Tachycardia, unspecified Plan: 1. Follow-up with a primary care provider as discussed. Return to the ED as needed and as discussed. Definitive disposition and diagnosis as appropriate pending reevaluation and review of above. 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: Musculoskeletal History: Reports: Other (See Below) Other Musculoskeletal History: intermittent back pain with this , sciatica, scoliosis Neurological History: Reports: None Psychiatric History: Reports: Anxiety Endocrine/Metabolic History: Reports: None Hematologic History: Reports: None Immunologic History: Reports: None Oncologic (Cancer) History: Reports: None Dermatologic History: Reports: Other (See Below) Other Dermatologic History: eczema in the winter - Infectious Disease History Infectious Disease History: Reports: Chicken Pox - Past Surgical History Head Surgeries/Procedures: Reports: None HEENT Surgical History: Reports: LASIK Cardiovascular Surgical History: Reports: None Respiratory Surgical History: Reports: None GI Surgical History: Reports: Appendectomy Female Surgical History: Reports: Section Neurological Surgical History: Reports: None Musculoskeletal Surgical History: Reports: None Dermatological Surgical History: Reports: None Social & Family History - Family History Family Medical History: No Pertinent Family History - Tobacco Use Tobacco Use Status *Q: Current Every Day Tobacco User Years of Tobacco use: 20 Packs/Tins Daily: 0.3 - Caffeine Use Caffeine Use: Reports: Coffee, Energy Drinks - Recreational Drug Use Recreational Drug Use: No ED ROS GENERAL - Review of Systems Review Of Systems: Comprehensive ROS is negative, except as noted in HPI. ED EXAM, GENERAL - Physical Exam Exam: See Below (see dictation) Course - Vital Signs Last Recorded V/S: Last Vital Signs Temp 97.7 F 01/29/20 18:43 Pulse 120 H 01/29/20 18:43 Resp 20 01/29/20 18:43 BP 130/82 01/29/20 18:43 Pulse Ox 100 01/29/20 18:43 Departure - Departure Time of Disposition: 19:54 Disposition: Home, Self-Care 01 Clinical Impression: Mucous cyst of mouth, Tachycardia - Discharge Information Referrals: Manuel Miles MD [Primary Care Provider] - Additional Instructions: The following information is given to patients seen in the emergency department who are being discharged to home. This information is to outline your options for follow-up care. We provide all patients seen in our emergency department with a follow-up referral. The need for follow-up, as well as the timing and circumstances, are variable depending upon the specifics of your emergency department visit. If you don't have a primary care physician on staff, we will provide you with a referral. We always advise you to contact your personal physician following an emergency department visit to inform them of the circumstance of the visit and for follow-up with them and/or the need for any referrals to a consulting specialist. The emergency department will also refer you to a specialist when appropriate. This referral assures that you have the opportunity for follow-up care with a specialist. All of these measure are taken in an effort to provide you with optimal care, which includes your follow-up. Under all circumstances we always encourage you to contact your private physician who remains a resource for coordinating your care. When calling for follow-up care, please make the office aware that this follow-up is from your recent emergency room visit. If for any reason you are refused follow-up, please contact the [facility] Emergency Department at and asked to speak to the emergency department charge nurse. [facility] Primary Care [address] [place] [id number] [facility] [address] [place] [address] 1. Follow-up with a primary care provider as discussed. Return to the ED as needed and as discussed. Sepsis Event Note (ED) - Evaluation Sepsis Screening Result: No Definite Risk - Focused Exam Vital Signs: Vital Signs Temp Pulse Resp BP Pulse Ox 01/29/20 18:43 97.7 F 120 H 20 130/82 100
== END 2020-01-29 20:15 | disposition home or self-care (01) ==
LOC: MW.ED 17:54
DX: K09.8 Other cysts of oral region, not elsewhere classified (principal); R00.0 Tachycardia, unspecified; F41.9 Anxiety disorder, unspecified; F17.210 Nicotine dependence, cigarettes, uncomplicated; Z88.6 Allergy status to analgesic agent; Z88.5 Allergy status to narcotic agent; Z79.899 Other long term (current) drug therapy
CPT/HCPCS: 99282; 99284

== ENCOUNTER 2020-02-08 20:44 | Emergency (ER) | payer BC, OTHER ==
--- NOTE | 2020-02-08 21:27 | EDM.PDOC ---
ED HPI GENERAL MEDICAL PROBLEM - General Chief Complaint: ENT Problem Stated Complaint: FEELS LIKE SOMETHING STUCK IN THROAT Time Seen by Provider: 02/08/20 20:58 - History of Present Illness INITIAL COMMENTS - FREE TEXT/NARRATIVE: Patient is a 34-year-old female with minimal past medical history who is presenting with a sensation of difficulty swallowing. Patient states that this is been going on for about 3 weeks. She also notes that about 3 weeks ago her anxiety started to take off again. Patient had previously been diagnosed with panic disorder her symptoms had improved with Lexapro pro and bupropion she had done quite well but starting about 3 weeks ago she again started to have significant anxiety episodes and needing her Ativan more frequently. Patient is been seen once in the ER for this she is also followed up with her primary care doctor. Patient is a non-smoker no smokeless tobacco products no drugs or alcohol she did smoke when she was younger but only a light smoker. No chest pain no shortness of breath patient notes that the symptoms are worse at night and worse when she thinks about them the increase with stress and they improve with distraction she feels like she has more trouble swallowing solids than liquids but she has had no trouble with things getting stuck or emesis. Throat Pain Score (Numeric/FACES): 3 - Related Data Allergies Allergy/AdvReac Type Severity Reaction Status Date / Time aspirin Allergy Anaphylactic Verified 02/08/20 20:56 Shock morphine Allergy Rash Verified 02/08/20 20:56 Home Meds: Home Meds buPROPion [Wellbutrin] 150 mg PO DAILY 06/28/19 [History] Escitalopram Oxalate [Lexapro] 10 mg PO DAILY 01/29/20 [History] Past Medical History HEENT History: Reports: None Cardiovascular History: Reports: None Respiratory History: Reports: None Gastrointestinal History: Reports: GERD Other Gastrointestinal History: heartburn with Genitourinary History: Reports: None 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: Musculoskeletal History: Reports: Other (See Below) Other Musculoskeletal History: Sciatica, scoliosis Neurological History: Reports: None Psychiatric History: Reports: Anxiety Endocrine/Metabolic History: Reports: None Hematologic History: Reports: None Immunologic History: Reports: None Oncologic (Cancer) History: Reports: None Dermatologic History: Reports: Other (See Below) Other Dermatologic History: eczema in the winter - Infectious Disease History Infectious Disease History: Reports: Chicken Pox - Past Surgical History Head Surgeries/Procedures: Reports: None HEENT Surgical History: Reports: LASIK Cardiovascular Surgical History: Reports: None Respiratory Surgical History: Reports: None GI Surgical History: Reports: Appendectomy Female Surgical History: Reports: Section Neurological Surgical History: Reports: None Musculoskeletal Surgical History: Reports: None Dermatological Surgical History: Reports: None Social & Family History - Family History Family Medical History: No Pertinent Family History - Tobacco Use Tobacco Use Status *Q: Current Some Day Tobacco User Years of Tobacco use: 8 Packs/Tins Daily: 0.1 - Caffeine Use Caffeine Use: Reports: None - Recreational Drug Use Recreational Drug Use: No ED ROS GENERAL - Review of Systems Review Of Systems: See Below Free Text/Narrative/Comment: General: No fever. Skin: No rash. Eyes: No vision problems. ENT: No sore throat. Neck: No neck stiffness. Respiratory: No shortness of breath. Cardiac: No chest pain. Gastrointestinal: No nausea, vomiting or abdominal pain. Urinary: No dysuria. Musculoskeletal: No myalgias/arthralgias. Neurologic: No headache. ED EXAM, GENERAL - Physical Exam Exam: See Below Free Text/Narrative:: General Appearance: No acute distress, appears comfortable Skin: No rash HEENT: Normocephalic/atraumatic, sclera anicteric, mucous membranes moist, normal oropharynx, no stridor, no abnormal masses or lymphadenopathy on neck exam Neck: Normal range of motion Chest and Lungs: Bilateral breath sounds, clear to auscultation Cardiovascular: Regular rate and rhythm, no murmur Abdomen: Soft, non-tender Back: Normal Musculoskeletal: No edema or tenderness Neurologic: Awake, alert, no obvious deficits, moving all extremities Psychiatric: Appropriate, cooperative Course - Vital Signs Last Recorded V/S: Last Vital Signs Temp 98.7 F 02/08/20 20:54 Pulse 87 02/08/20 20:54 Resp 16 02/08/20 20:54 BP 125/78 02/08/20 20:54 Pulse Ox 99 02/08/20 20:54 Departure - Departure Time of Disposition: 21:25 Disposition: Home, Self-Care 01 Condition: Good Clinical Impression: Globus sensation - Discharge Information *PRESCRIPTION DRUG MONITORING PROGRAM REVIEWED*: Not Applicable *COPY OF PRESCRIPTION DRUG MONITORING REPORT IN PATIENT JENNIFER: Not Applicable Instructions: Globus Pharyngeus Referrals: Manuel Miles MD [Primary Care Provider] - 1 Week Forms: ED Department Discharge Additional Instructions: I encourage you to talk to Dr. Miles about seeing somebody for your anxiety as I think this is clearly impacting facets of your life. While it is possible that there is something in your throat I think it is unlikely. If your symptoms persist Dr. Miles could potentially refer you for an endoscopy to look down your esophagus. However, I think it is much more likely that your symptoms are due to resurgence of your anxiety. The following information is given to patients seen in the emergency department who are being discharged to home. This information is to outline your options for follow-up care. We provide all patients seen in our emergency department with a follow-up referral. The need for follow-up, as well as the timing and circumstances, are variable depending upon the specifics of your emergency department visit. If you don't have a primary care physician on staff, we will provide you with a referral. We always advise you to contact your personal physician following an emergency department visit to inform them of the circumstance of the visit and for follow-up with them and/or the need for any referrals to a consulting specialist. The emergency department will also refer you to a specialist when appropriate. This referral assures that you have the opportunity for follow-up care with a specialist. All of these measure are taken in an effort to provide you with optimal care, which includes your follow-up. Under all circumstances we always encourage you to contact your private physician who remains a resource for coordinating your care. When calling for follow-up care, please make the office aware that this follow-up is from your recent emergency room visit. If for any reason you are refused follow-up, please contact the [facility] Emergency Department at and asked to speak to the emergency department charge nurse. Sepsis Event Note (ED) - Evaluation Sepsis Screening Result: No Definite Risk - Focused Exam Vital Signs: Vital Signs Temp Pulse Resp BP Pulse Ox 02/08/20 20:54 98.7 F 87 16 125/78 99 - Assessment/Plan Assessment:: 34-year-old female presenting with signs and symptoms that are most consistent with globus syndrome in the setting of worsening anxiety multiple other etiologies were considered given the fact that she does seem to have more trouble with solid foods we did discuss potential for talking with Dr. Miles about EGD if symptoms persist but patient has no identifiable risk factors for head neck cancer or esophageal cancer. No findings that would suggest esophageal food impaction no findings of respiratory involvement. Patient calm and comfortable symptoms clearly wax and wane with anxiety. They clearly improved with distraction. Had a long conversation with the patient about reaching out for counseling as well as discussing these issues with her primary care provider.
== END 2020-02-08 21:30 | disposition home or self-care (01) ==
LOC: MW.ED 20:44
DX: R09.89 Other specified symptoms and signs involving the circulatory and respiratory systems (principal); F17.210 Nicotine dependence, cigarettes, uncomplicated; F41.9 Anxiety disorder, unspecified; M41.9 Scoliosis, unspecified; Z88.6 Allergy status to analgesic agent; Z88.5 Allergy status to narcotic agent; Z79.899 Other long term (current) drug therapy
CPT/HCPCS: 99282; 99283

== ENCOUNTER 2020-07-22 18:49 | Emergency (ER) | payer BC, OTHER ==
--- NOTE | 2020-07-22 19:41 | EDM.PDOC ---
ED HPI GENERAL MEDICAL PROBLEM - General Chief Complaint: Skin Complaint Stated Complaint: LUMP ON BACK Time Seen by Provider: 07/22/20 19:17 Source of Information: Reports: Patient History Limitations: Reports: No Limitations - History of Present Illness INITIAL COMMENTS - FREE TEXT/NARRATIVE: HISTORY AND PHYSICAL: History of present illness: Patient is a 35-year-old female who presents to the emergency room with complaints of "lump on my back". She states she does have a history of scoliosis although has never noticed a malalignment of her spine. Last week she was scratching her back and she had noticed a "lump" which was alarming to her as she had never seen this before. She does see a chiropractor 2-3 times per week for adjustments of her thoracic spine/ribs. Denies any injury, trauma or falls. She denies any numbness, tingling or weakness of the extremities. Patient denies any fever, chills, headache, change in vision, syncope or near syncope. Denies any chest pain, back pain, shortness of breath or cough. Denies any GI or symptoms. Review of systems: As per history of present illness and below otherwise all systems reviewed and negative. Past medical history: As per history of present illness and as reviewed below otherwise noncontributory. Surgical history: As per history of present illness and as reviewed below otherwise noncontributor y. Social history: See social history for further information Family history: As per history of present illness and as reviewed below otherwise noncontributory. Physical exam: General: Well developed and well nourished. Alert and orientated x 3. Nontoxic in appearance and in no acute distress. Vital signs are stable and have been reviewed by me. Nursing notes were reviewed. HEENT: Atraumatic, normocephalic, pupils equal and reactive bilaterally, negative for conjunctival pallor or scleral icterus, mucous membranes moist, TMs normal bilaterally, throat clear, neck supple, nontender, trachea midline. No drooling or trismus noted. No meningeal signs. No hot potato voice noted. Lungs: Clear to auscultation bilaterally. No wheezes, rales, or rhonchi. Chest nontender. Normal work of breathing, no accessory muscles used. Heart: S1S2, regular rate and rhythm without overt murmur, gallops, or rubs. No JVD. No peripheral edema Abdomen: Soft, nondistended, nontender. Normoactive bowel sounds. Negative for masses or costovertebral tenderness. C-spine/Back: No pinpoint vertebral tenderness upon palpation. No crepitus, step-offs or obvious deformities. Patient does have uneven shoulders, right side is more pronounced/prominent. Patient is ambulatory into the emergency room without difficulty or deficit. Able to rock back on heels and walk on toes. Denies any urinary or fecal incontinence. Denies any numbness, tingling or saddle paresthesia. No concerns of serious infection, fracture or cord compression, or cauda equina syndrome. Deep tendon reflexes brisk bilaterally. Skin: Intact, warm, dry. No lesions or rashes noted. Hematologic: No petechiae or purpra. Mucosa appropriate color and normal nail bed color and refill. Extremities: Atraumatic, moves all extremities per self without difficulty or deficits, negative for cords or calf pain. Neurovascular unremarkable. Neuro: Awake, alert, oriented. Cranial nerves II through XII unremarkable. Cerebellum unremarkable. Motor and sensory unremarkable throughout. Exam nonfocal. Psychiatric: Mood and affect are appropriate. Normal thought process. Answering questions appropriately. Notes: *This patient was seen and evaluated during the 2019 SARS-CoV-2 novel coronavirus pandemic period. Community viral transmission is ongoing at time of this encounter and the emergency department is operating under pandemic response procedures. Patient does not have any neurological deficits. The back is nonpainful. She offers no systemic complaints. I will get a thoracic x-ray for patient reassurance. Scoliosis, minimally increased. I have talked with the patient about today's findings, in addition to providing specific details for plan of care. Reassessment at the time of disposition demonstrates that the patient is in no acute distress. The patient is stable for discharge, counseling was provided and we discussed in great detail signs and symptoms that would prompt them to return to the Emergency Department. Medication, follow up and supportive care measures were reviewed and discussed. Voices understanding and is agreeable to plan of care. Denies any further questions or concerns at this time. Diagnostics: Thoracic x-ray Therapeutics: None Prescription: None Impression: Scoliosis Plan: 1. You were evaluated today on an emergent basis. Your x-ray shows scoliosis, causing your shoulder blades to be uneven. 2. You can alternate Tylenol and ibuprofen as needed for pain and fever management. 3. We encourage you to follow up with Dr Miles for re-evaluation and further care/management. 4. If your symptoms should worsen, new symptoms develop or any of the signs and symptoms we discussed should arise please return to the emergency room or call 911 (if needed). Definitive disposition and diagnosis as appropriate pending reevaluation and review of above. right upper back Pain Score (Numeric/FACES): 0 - Related Data Allergies Allergy/AdvReac Type Severity Reaction Status Date / Time aspirin Allergy Anaphylactic Verified 07/22/20 19:06 Shock morphine Allergy Rash Verified 07/22/20 19:06 Home Meds: Home Meds buPROPion [Wellbutrin] 150 mg PO DAILY 06/28/19 [History] Escitalopram Oxalate [Lexapro] 10 mg PO DAILY 01/29/20 [History] Propranolol [Inderal] 10 mg PO DAILY 07/22/20 [History] Past Medical History HEENT History: Reports: None Cardiovascular History: Reports: Other (See Below) Other Cardiovascular History: Tachycardia Respiratory History: Reports: None Gastrointestinal History: Reports: GERD Other Gastrointestinal History: heartburn with Genitourinary History: Reports: None BALANCE WHEEL FACER History: Reports: Musculoskeletal History: Reports: Other (See Below) Other Musculoskeletal History: Sciatica, Scoliosis Neurological History: Reports: None Psychiatric History: Reports: Anxiety Endocrine/Metabolic History: Reports: None Insulin Pump Model and Communications Maintainer: None Hematologic History: Reports: None Immunologic History: Reports: None Oncologic (Cancer) History: Reports: None Dermatologic History: Reports: Other (See Below) Other Dermatologic History: eczema in the winter - Infectious Disease History Infectious Disease History: Reports: Chicken Pox - Past Surgical History Head Surgeries/Procedures: Reports: None HEENT Surgical History: Reports: LASIK Cardiovascular Surgical History: Reports: None Respiratory Surgical History: Reports: None GI Surgical History: Reports: Appendectomy Female Surgical History: Reports: Section Neurological Surgical History: Reports: None Musculoskeletal Surgical History: Reports: None Dermatological Surgical History: Reports: None Social & Family History - Family History Family Medical History: No Pertinent Family History - Caffeine Use Caffeine Use: Reports: Energy Drinks, Soda - Recreational Drug Use Recreational Drug Use: No ED ROS GENERAL - Review of Systems Review Of Systems: Comprehensive ROS is negative, except as noted in HPI. ED EXAM, SKIN/RASH Exam: See Below (See dictation) Course - Vital Signs Last Recorded V/S: Last Vital Signs Temp 97.5 F 07/22/20 19:05 Pulse 90 07/22/20 19:05 Resp 18 07/22/20 19:05 BP 119/82 07/22/20 19:05 Pulse Ox 97 07/22/20 19:05 Departure - Departure Time of Disposition: 20:36 Disposition: Home, Self-Care 01 Clinical Impression: Scoliosis Qualifiers: Scoliosis type: unspecified scoliosis Spinal region: thoracic Qualified Code(s): M41.9 - Scoliosis, unspecified - Discharge Information Referrals: Manuel Miles MD [Primary Care Provider] - Forms: ED Department Discharge Additional Instructions: The following information is given to patients seen in the emergency department who are being discharged to home. This information is to outline your options for follow-up care. We provide all patients seen in our emergency department with a follow-up referral. The need for follow-up, as well as the timing and circumstances, are variable depending upon the specifics of your emergency department visit. If you don't have a primary care physician on staff, we will provide you with a referral. We always advise you to contact your personal physician following an emergency department visit to inform them of the circumstance of the visit and for follow-up with them and/or the need for any referrals to a consulting specialist. The emergency department will also refer you to a specialist when appropriate. This referral assures that you have the opportunity for follow-up care with a specialist. All of these measure are taken in an effort to provide you with optimal care, which includes your follow-up. Under all circumstances we always encourage you to contact your private physician who remains a resource for coordinating your care. When calling for follow-up care, please make the office aware that this follow-up is from your recent emergency room visit. If for any reason you are refused follow-up, please contact the [facility] Emergency Department at and asked to speak to the emergency department charge nurse. [facility] [address] [place] [address] [id number] [address] [place] [address] Thank you for choosing the [facility] emergency department in [place] for your medical needs today. It was a pleasure caring for you. Today you were seen in the emergency department for back deformity. 1. You were evaluated today on an emergent basis. Your x-ray shows scoliosis, causing your shoulder blades to be uneven. 2. You can alternate Tylenol and ibuprofen as needed for pain and fever management. 3. We encourage you to follow up with Dr Miles for re-evaluation and further care/management. 4. If your symptoms should worsen, new symptoms develop or any of the signs and symptoms we discussed should arise please return to the emergency room or call 911 (if needed). Sepsis Event Note (ED) - Evaluation Sepsis Screening Result: No Definite Risk - Focused Exam Vital Signs: Vital Signs Temp Pulse Resp BP Pulse Ox 07/22/20 19:05 97.5 F 90 18 119/82 97
--- NOTE | 2020-07-22 20:33 | CR ---
Indication: Uneven right shoulder/thoracic chest. Technique: Three views of the thoracic spine. Comparison: June 28, 2019. Findings: Dextroscoliosis of the thoracic spine is identified. This is slightly increased when compared with the previous chest x-ray dated June 28, 2019. No fracture or subluxation is identified. Impression: Scoliosis, minimally increased Dictated by Rachel Nunes MD @ 07/22/2020 8:31:[address] Rachel Nunes @ Jul 22 2020 8:31PM
== END 2020-07-22 20:45 | disposition home or self-care (01) ==
LOC: MW.ED 18:49
DX: M41.9 Scoliosis, unspecified (principal); Z88.6 Allergy status to analgesic agent; Z88.8 Allergy status to other drugs, medicaments and biological substances
CPT/HCPCS: 72072; 72072-26; 99283

== ENCOUNTER 2021-01-26 08:57 | Emergency (ER) | payer BC, OTHER ==
--- NOTE | 2021-01-26 09:55 | EDM.PDOC ---
ED HPI GENERAL MEDICAL PROBLEM - General Chief Complaint: Abdominal Pain Stated Complaint: ABDOMINAL PAIN/LOWERBACK,TAILBONE PAIN/LEGS NUMB Time Seen by Provider: 01/26/21 09:35 Source of Information: Reports: Patient History Limitations: Reports: No Limitations - History of Present Illness INITIAL COMMENTS - FREE TEXT/NARRATIVE: Patient is a 35-year-old female presents today for lower abdominal pain. Patient was seen by [facility] she states was told she had ovarian cysts. Patient states that the pain to be improved now she has pain in her lower back. She had before constipation. Patient is here and she is tearful because she thinks he may have cancer and wants to get checked out for this. Denies any GI symptoms no diarrhea vomiting fever chills or vaginal discharge tailbone, abdomen Pain Score (Numeric/FACES): 4 - Related Data Allergies Allergy/AdvReac Type Severity Reaction Status Date / Time aspirin Allergy Anaphylactic Verified 01/26/21 09:30 Shock morphine Allergy Rash Verified 01/26/21 09:30 Home Meds: Home Meds buPROPion [Wellbutrin] 150 mg PO DAILY 06/28/19 [History] Escitalopram Oxalate [Lexapro] 10 mg PO DAILY 01/29/20 [History] Past Medical History HEENT History: Reports: None Cardiovascular History: Reports: Other (See Below) Other Cardiovascular History: Tachycardia Respiratory History: Reports: None Gastrointestinal History: Reports: GERD Other Gastrointestinal History: heartburn with Genitourinary History: Reports: None ADMINISTRATIVE SUPPORT MANAGER History: Reports: Musculoskeletal History: Reports: Other (See Below) Other Musculoskeletal History: Sciatica, Scoliosis Neurological History: Reports: Migraines Psychiatric History: Reports: Anxiety Endocrine/Metabolic History: Reports: None Insulin Pump Model and Mouthpiece Maker: None Hematologic History: Reports: None Immunologic History: Reports: None Oncologic (Cancer) History: Reports: None Dermatologic History: Reports: Other (See Below) Other Dermatologic History: eczema in the winter - Infectious Disease History Infectious Disease History: Reports: Chicken Pox, Novel Coronavirus - Past Surgical History Head Surgeries/Procedures: Reports: None HEENT Surgical History: Reports: LASIK Cardiovascular Surgical History: Reports: None Respiratory Surgical History: Reports: None GI Surgical History: Reports: Appendectomy Female Surgical History: Reports: Section Neurological Surgical History: Reports: None Musculoskeletal Surgical History: Reports: None Dermatological Surgical History: Reports: None Social & Family History - Family History Family Medical History: No Pertinent Family History - Tobacco Use Tobacco Use Status *Q: Never Tobacco User - Caffeine Use Caffeine Use: Reports: Soda - Recreational Drug Use Recreational Drug Use: No ED ROS GENERAL - Review of Systems Review Of Systems: See Below Constitutional: Reports: No Symptoms HEENT: Reports: No Symptoms Respiratory: Reports: No Symptoms Cardiovascular: Reports: No Symptoms Endocrine: Reports: No Symptoms GI/Abdominal: Reports: Abdominal Pain : Reports: No Symptoms Musculoskeletal: Reports: No Symptoms Skin: Reports: No Symptoms Neurological: Reports: No Symptoms Psychiatric: Reports: No Symptoms Hematologic/Lymphatic: Reports: No Symptoms Immunologic: Reports: No Symptoms ED EXAM, GI/ABD - Physical Exam Exam: See Below Exam Limited By: No Limitations General Appearance: Alert, WD/WN, No Apparent Distress Eyes: Bilateral: EOMI Ears: Normal External Exam Throat/Mouth: Normal Inspection Head: Atraumatic Neck: Normal Inspection Respiratory/Chest: No Respiratory Distress, Lungs Clear, Normal Breath Sounds Cardiovascular: Normal Peripheral Pulses, Regular Rate, Rhythm GI/Abdominal Exam: Normal Bowel Sounds, Soft, Non-Tender Back Exam: No: CVA Tenderness (L), CVA Tenderness (R) Extremities: Normal Inspection, Normal Range of Motion Neurological: Alert, Oriented, Normal Cognition, Normal Gait Course - Vital Signs Last Recorded V/S: Last Vital Signs Temp 97.4 F 01/26/21 09:24 Pulse 131 H 01/26/21 10:19 Resp 20 01/26/21 10:19 BP 131/83 01/26/21 10:19 Pulse Ox 96 01/26/21 10:19 - Orders/Labs/Meds Labs: Laboratory Tests 01/26/21 01/26/21 01/26/21 Range/Units 10:15 10:15 10:15 WBC 7.43 (4.0-11.0) K/uL RBC 5.14 (4.30-5.90) M/uL Hgb 14.8 (12.0-16.0) g/dL Hct 44.7 (36.0-46.0) % MCV 87.0 (80.0-98.0) fL MCH 28.8 (27.0-32.0) pg MCHC 33.1 (31.0-37.0) g/dL RDW Std Deviation 40.9 (28.0-62.0) fl RDW Coeff of Wong 13 (11.0-15.0) % Plt Count 302 (150-400) K/uL MPV 10.70 (7.40-12.00) fL Neut % (Auto) 75.1 (48.0-80.0) % Lymph % (Auto) 17.8 (16.0-40.0) % [place] % (Auto) 6.1 (0.0-15.0) % Eos % (Auto) 0.9 (0.0-7.0) % Baso % (Auto) 0.1 (0.0-1.5) % Neut # (Auto) 5.6 (1.4-5.7) K/uL Lymph # (Auto) 1.3 (0.6-2.4) K/uL [place] # (Auto) 0.5 (0.0-0.8) K/uL Eos # (Auto) 0.1 (0.0-0.7) K/uL Baso # (Auto) 0.0 (0.0-0.1) K/uL Nucleated RBC % 0.0 /100WBC Nucleated RBCs # 0 K/uL Sodium 140 (136-145) mmol/L Potassium 3.8 (3.5-5.1) mmol/L Chloride 103 (98-107) mmol/L Carbon Dioxide 27.9 (21.0-32.0) mmol/L BUN 9 (7.0-18.0) mg/dL Creatinine 0.8 (0.6-1.0) mg/dL Est Cr Clr Drug Dosing 72.65 mL/min Estimated GFR (MDRD) > 60.0 ml/min Glucose 108 H (74-106) mg/dL Calcium 8.9 (8.5-10.1) mg/dL Phosphorus 3.0 (2.6-4.7) mg/dL Magnesium 2.4 (1.8-2.4) mg/dL Total Bilirubin 0.5 (0.2-1.0) mg/dL AST 13 L (15-37) IU/L ALT 20 (14-63) IU/L Alkaline Phosphatase 68 (46-116) U/L Total Protein 8.2 (6.4-8.2) g/dL Albumin 4.2 (3.4-5.0) g/dL Globulin 4.0 (2.6-4.0) g/dL Albumin/Globulin Ratio 1.0 (0.9-1.6) Lipase 85 (73-393) U/L HCG, Qual NEGATIVE (NEG) Urine Color Urine Appearance Urine pH (5.0-8.0) Ur Specific [place] (1.001-1.035) Urine Protein (NEGATIVE) mg/dL Urine Glucose (UA) (NEGATIVE) mg/dL Urine Ketones (NEGATIVE) mg/dL Urine Occult Blood (NEGATIVE) Urine Nitrite (NEGATIVE) Urine Bilirubin (NEGATIVE) Urine Urobilinogen (<2.0) EU/dL Ur Leukocyte Esterase (NEGATIVE) Urine RBC (0-2/HPF) Urine WBC (0-5/HPF) Ur Epithelial Cells (NONE-FEW) Urine Bacteria (NEGATIVE) 01/26/21 Range/Units 11:04 WBC (4.0-11.0) K/uL RBC (4.30-5.90) M/uL Hgb (12.0-16.0) g/dL Hct (36.0-46.0) % MCV (80.0-98.0) fL MCH (27.0-32.0) pg MCHC (31.0-37.0) g/dL RDW Std Deviation (28.0-62.0) fl RDW Coeff of Wong (11.0-15.0) % Plt Count (150-400) K/uL MPV (7.40-12.00) fL Neut % (Auto) (48.0-80.0) % Lymph % (Auto) (16.0-40.0) % [place] % (Auto) (0.0-15.0) % Eos % (Auto) (0.0-7.0) % Baso % (Auto) (0.0-1.5) % Neut # (Auto) (1.4-5.7) K/uL Lymph # (Auto) (0.6-2.4) K/uL [place] # (Auto) (0.0-0.8) K/uL Eos # (Auto) (0.0-0.7) K/uL Baso # (Auto) (0.0-0.1) K/uL Nucleated RBC % /100WBC Nucleated RBCs # K/uL Sodium (136-145) mmol/L Potassium (3.5-5.1) mmol/L Chloride (98-107) mmol/L Carbon Dioxide (21.0-32.0) mmol/L BUN (7.0-18.0) mg/dL Creatinine (0.6-1.0) mg/dL Est Cr Clr Drug Dosing mL/min Estimated GFR (MDRD) ml/min Glucose (74-106) mg/dL Calcium (8.5-10.1) mg/dL Phosphorus (2.6-4.7) mg/dL Magnesium (1.8-2.4) mg/dL Total Bilirubin (0.2-1.0) mg/dL AST (15-37) IU/L ALT (14-63) IU/L Alkaline Phosphatase (46-116) U/L Total Protein (6.4-8.2) g/dL Albumin (3.4-5.0) g/dL Globulin (2.6-4.0) g/dL Albumin/Globulin Ratio (0.9-1.6) Lipase (73-393) U/L HCG, Qual (NEG) Urine Color YELLOW Urine Appearance CLEAR Urine pH 7.5 (5.0-8.0) Ur Specific [place] 1.015 (1.001-1.035) Urine Protein NEGATIVE (NEGATIVE) mg/dL Urine Glucose (UA) NEGATIVE (NEGATIVE) mg/dL Urine Ketones NEGATIVE (NEGATIVE) mg/dL Urine Occult Blood SMALL H (NEGATIVE) Urine Nitrite NEGATIVE (NEGATIVE) Urine Bilirubin NEGATIVE (NEGATIVE) Urine Urobilinogen 0.2 (<2.0) EU/dL Ur Leukocyte Esterase NEGATIVE (NEGATIVE) Urine RBC 0-2 (0-2/HPF) Urine WBC 0-2 (0-5/HPF) Ur Epithelial Cells FEW (NONE-FEW) Urine Bacteria FEW (NEGATIVE) Meds: Medications Discontinued Medications Generic Name Dose Route Start Last Admin Trade Name Freq PRN Reason Stop Dose Admin Iopamidol 100 ml 01/26/21 12:06 01/26/21 12:06 Iopamidol 755 Mg/Ml 500 Ml Multipack Bottle IVPUSH 01/26/21 12:07 100 ml ONETIME STA Administration - Re-Assessments/Exams Free Text/Narrative Re-Assessment/Exam: 11/18/21 13:20 CT reviewed patient will be discharged home. Departure - Departure Time of Disposition: 13:20 Disposition: Home, Self-Care 01 Condition: Good Clinical Impression: General medical exam - Discharge Information *PRESCRIPTION DRUG MONITORING PROGRAM REVIEWED*: Not Applicable *COPY OF PRESCRIPTION DRUG MONITORING REPORT IN PATIENT JENNIFER: Not Applicable Instructions: Medical Screening Exam Referrals: Manuel Miles MD [Primary Care Provider] - Forms: ED Department Discharge Additional Instructions: You are seen today for abdominal pain. We did imaging and labs that came back within normal limits. Please follow-up to primary care physician for further care if you have any other questions please call your primary care physician. The following information is given to patients seen in the emergency department who are being discharged to home. This information is to outline your options for follow-up care. We provide all patients seen in our emergency department with a follow-up referral. The need for follow-up, as well as the timing and circumstances, are variable depending upon the specifics of your emergency department visit. If you don't have a primary care physician on staff, we will provide you with a referral. We always advise you to contact your personal physician following an emergency department visit to inform them of the circumstance of the visit and for follow-up with them and/or the need for any referrals to a consulting specialist. The emergency department will also refer you to a specialist when appropriate. This referral assures that you have the opportunity for follow-up care with a specialist. All of these measure are taken in an effort to provide you with optimal care, which includes your follow-up. Under all circumstances we always encourage you to contact your private physician who remains a resource for coordinating your care. When calling for follow-up care, please make the office aware that this follow-up is from your recent emergency room visit. If for any reason you are refused follow-up, please contact the [facility] Emergency Department at and asked to speak to the emergency department charge nurse. Please follow up with your primary care physician. If you do not have a primary care physician, see below: [facility] [address] [place] [id number] [facility] [address] [place] [address] Sepsis Event Note (ED) - Evaluation Sepsis Screening Result: No Definite Risk - Focused Exam Vital Signs: Vital Signs Temp Pulse Resp BP Pulse Ox 01/26/21 10:19 131 H 20 131/83 96 01/26/21 09:24 97.4 F 117 H 16 148/88 H 100 - Assessment/Plan Plan: Patient is a 35-year-old female who presents today for lower abdominal pain. Patient was had ultrasound that showed short ovarian cyst but still having pain even with treatment her GLASS [facility]ER doctor gave her. Patient also tripped and she may have cancer. We will obtain labs CT scan and reassess.
[2021-01-26 10:53] LABS: BLOOD UREA NITROGEN,BUN 9 mg/dL (7.0-18.0); CARBON DIOXIDE,CO2 27.9 mmol/L (21.0-32.0); CHLORIDE,CL 103 mmol/L (98-107); GLUCOSE RANDOM 108 mg/dL (74-106); LIPASE 85 U/L (73-393); POTASSIUM,K 3.8 mmol/L (3.5-5.1); SODIUM,NA 140 mmol/L (136-145)
[2021-01-26] MEDS ORDERED: Iopamidol 755 MG/ML 500 ML Multipack Bottle IVPUSH STA (12:06)
--- NOTE | 2021-01-26 13:11 | CT ---
Indication: Lower abdominal pain, history of ovarian cysts Technique: Volumetric multidetector CT images of the abdomen and pelvis were obtained after the administration of intravenous contrast. 100 cc Isovue 370 low osmolar intravenous contrast Comparison: None available. Findings: The lung bases are clear. The liver is normal in attenuation without intrahepatic biliary ductal dilatation. The portal vein is patent. The gallbladder is unremarkable without evidence of radiopaque calculus. There is no significant common biliary ductal dilatation or abrupt cut off. The spleen is normal in enhancement and size. The stomach and duodenum are grossly unremarkable. The pancreas is normal in enhancement without significant atrophy. The adrenal glands are unremarkable. The kidneys demonstrated mild persistent lobular appearance with otherwise preserved corticomedullary differentiation. There is no evidence of obstructive calculus. There is mild to moderate stool seen within the proximal colon with a decompressed appearing distal colon with minimal colonic diverticulosis without definite diverticulitis. The appendix is unremarkable. There is no significant mesenteric, retroperitoneal, or pelvic sidewall lymph nodes. The aorta is nonaneurysmal. There is no significant atherosclerotic disease appreciated. There is mild follicular development in the bilateral ovaries without evidence of ovarian cyst. The pelvic viscera are otherwise grossly within normal limits. There is no free fluid or free air. There is a small fat containing umbilical hernia, otherwise the anterior abdominal wall is grossly intact. The lumbar vertebral body heights are grossly maintained in satisfactory alignment without evidence of displaced fracture, lytic or blastic lesion. Impression: Minimal normal-appearing follicles seen within the bilateral ovaries, otherwise no evidence of ovarian cyst or acute abnormality. Please note that all CT scans at this facility use dose modulation, iterative reconstruction, and/or weight-based dosing when appropriate to reduce radiation dose to as low as reasonably achievable. Dictated by Samm Love MD @ 01/26/2021 1:09:41 PM (Electronically Signed)
== END 2021-01-26 13:40 | disposition home or self-care (01) ==
LOC: MW.ED 08:57
DX: Z00.00 Encounter for general adult medical examination without abnormal findings (principal); Z86.16 Personal history of COVID-19; Z88.8 Allergy status to other drugs, medicaments and biological substances; Z88.5 Allergy status to narcotic agent; Z79.899 Other long term (current) drug therapy
CPT/HCPCS: 36415; 74177; 80053; 81001; 83690; 83735; 84100; 84703; 85025; 99284; Q9967

== ENCOUNTER 2021-09-03 13:49 | Emergency (ER) | payer BC | END 2021-09-03 15:46 | disposition left against medical advice (07) | LOC: MW.ED 13:49 | DX: Z53.21 Procedure and treatment not carried out due to patient leaving prior to being seen by health care provider (principal) ==

== ENCOUNTER 2022-09-23 02:21 | Emergency (ER) | payer BC | END 2022-09-23 04:28 | disposition home or self-care (01) | LOC: MW.ED 02:21 | DX: M99.08 Segmental and somatic dysfunction of rib cage (principal); Z86.16 Personal history of COVID-19; Z98.890 Other specified postprocedural states; Z88.8 Allergy status to other drugs, medicaments and biological substances; Z88.5 Allergy status to narcotic agent | CPT/HCPCS: 71046; 71046-26; 99283 ==

== ENCOUNTER 2023-01-15 08:09 | Day surgery (SDC) | payer BC, OTHER ==
[~2023-01-15 08:09] MED LIST: Dexmedetomidine 200 MCG/2 ML SDV ONE; Lactated Ringers 1,000 ML IV SCH; Sodium Chloride 0.9% 10 ML Syringe FLUSH PRN; Sodium Chloride 0.9% 2.5 ML Syringe FLUSH PRN; Sodium Chloride 0.9% 20 ML SDV IV PRN; Water For Injection, Sterile 20 ML ONE; propofoL 50 ML ONE
== END 2023-01-15 11:05 | disposition home or self-care (01) ==
LOC: MW.SDS 08:09
PROVIDERS: ATTEND Surgery
DX: K58.1 Irritable bowel syndrome with constipation (principal); K29.50 Unspecified chronic gastritis without bleeding; R68.81 Early satiety; F41.9 Anxiety disorder, unspecified; G47.00 Insomnia, unspecified; G89.29 Other chronic pain; M54.2 Cervicalgia; M54.9 Dorsalgia, unspecified; Z88.5 Allergy status to narcotic agent; Z88.8 Allergy status to other drugs, medicaments and biological substances; Z87.891 Personal history of nicotine dependence
CPT/HCPCS: 43239; 45380; 81025; J2704; J7120; 00813; J3490